=== PATIENT | male | born 1980 | race American Indian/Alaskan Native ===

== ENCOUNTER 2017-06-07 00:05 | Emergency (ER) | payer MEDICAID, OTHER ==
[2017-06-07 00:18] VITALS: BP 151/97; PULSE 115; RESP 18; TEMP 99; O2SAT 99
--- NOTE | 2017-06-07 00:57 | C.PDOC ---
History Of Present Illness 37 year old male with no significant PMHx presents to the ED for evaluation of itchy face and neck. Patient admits to drinking some alcohol today, patient also reports eating some tacobell. Patient reports that after eating he developed an itchy rash to his face and neck. Patient denies respiratory problems, prior Hx of allergic reactions, SOB, CP. Chief Complaint (Nursing): Allergic Reaction History Per: Patient History/Exam Limitations: no limitations Onset/Duration Of Symptoms: Hrs Current Symptoms Are (Timing): Still Present Context: Food Possible Cause: Food Associated Symptoms: Skin Rash Home/EMS Treatment: None Severity: None Recent travel outside of the [place]: No Additional History Per: Patient Past Medical History Reviewed: Historical Data, Nursing Documentation, Vital Signs Vital Signs: Last Vital Signs Temp 99 F 06/07/17 00:13 Pulse 115 H 06/07/17 00:13 Resp 18 06/07/17 00:13 BP 151/97 H 06/07/17 00:13 Pulse Ox 99 06/07/17 01:00 - Medical History PMH: No Chronic Diseases Surgical History: No Surg Hx Family History: States: Unknown Family Hx - Social History Hx Alcohol Use: No Hx Substance Use: No - Immunization History Hx Tetanus Toxoid Vaccination: No Hx Influenza Vaccination: No Hx Pneumococcal Vaccination: No Review Of Systems Constitutional: Negative for: Fever, Chills ENT: Negative for: Mouth Swelling, Throat Swelling Cardiovascular: Negative for: Chest Pain Respiratory: Negative for: Shortness of Breath Gastrointestinal: Negative for: Nausea, Vomiting, Abdominal Pain Skin: Positive for: Rash Neurological: Negative for: Weakness, Numbness Physical Exam - Physical Exam Appears: Non-toxic, No Acute Distress Skin: Normal Color, Warm, Dry, No Rash, Other (subjective itchy rash to neck and face) Head: Atraumatic, Normacephalic Eye(s): bilateral: Normal Inspection Ear(s): Bilateral: Normal Nose: No Discharge Oral Mucosa: Moist Tongue: No Swelling Lips: No Swelling Throat: Normal, No Erythema, No Exudate, No Drooling Neck: Normal ROM, Supple Chest: Symmetrical Cardiovascular: Rhythm Regular, No Murmur Respiratory: Normal Breath Sounds, No Rales, No Rhonchi, No Wheezing Gastrointestinal/Abdominal: Soft, No Tenderness, No Guarding, No Rebound Extremity: Normal ROM, No Tenderness, No Swelling Neurological/Psych: Oriented x3, Normal Motor, Normal Sensation Gait: Steady ED Course And Treatment O2 Sat by Pulse Oximetry: 99 (On RA) Pulse Ox Interpretation: Normal Medical Decision Making Medical Decision Making: Impression: allergic reaction Plan: * Benadryl 50 mg PO * Pepcid 20 mg PO * Prednisone 60 mg PO Disposition - Disposition Referrals: [facility] [Outside] Disposition: HOME/ ROUTINE Disposition Time: 04:31 Condition: FAIR Prescriptions: DiphenhydrAMINE [Benadryl] 25 mg PO TID PRN #15 cap PRN Reason: Itching / Pruritus Famotidine [Pepcid] 40 mg PO DAILY #5 tablet predniSONE [predniSONE Tab] 20 mg PO DAILY #5 tab Instructions: Food Allergy Forms: [employer] (Danish) Print Language: MAURITIAN - Clinical Impression Clinical Impression: Allergic state - Scribe Statement The provider has reviewed the documentation as recorded by the Scribe Kirk Hoffman All medical record entries made by the Scribe were at my direction and personally dictated by me. I have reviewed the chart and agree that the record accurately reflects my personal performance of the history, physical exam, medical decision making, and the department course for this patient. I have also personally directed, reviewed, and agree with the discharge instructions and disposition.
== END 2017-06-07 00:43 | disposition home or self-care (01) ==
LOC: SUPCPDRO 00:05 → C.ER 00:05
DX: T78.40XA Allergy, unspecified, initial encounter (principal)